=== PATIENT | female | born 1995 | race Caucasian/White ===

== ENCOUNTER 2018-11-09 13:16 | Emergency (ER) | payer BC, OTHER ==
[~2018-11-09] VITALS: Ht 162.6 cm; Wt 49.9 kg
== END 2018-11-09 21:03 | disposition home or self-care (01) ==
LOC: ER 13:16
DX: L02.214 Cutaneous abscess of groin (principal); F41.9 Anxiety disorder, unspecified; F32.9 Major depressive disorder, single episode, unspecified
CPT/HCPCS: 99283